=== PATIENT | female | born 1980 | race Caucasian/White ===

== ENCOUNTER 2022-01-10 19:33 | Emergency (ER) | payer MEDICAID, SELFPAY ==
[2022-01-10 19:46] VITALS: BP 120/78; PULSE 74; O2SAT 95
[2022-01-10 19:48] VITALS: BP 120/77; PULSE 74; RESP 22; O2SAT 99; BMI 30.5
--- NOTE | 2022-01-10 20:21 | ED.BACK ---
HPI - Back Pain/Injury General Chief Complaint: Back Pain/Injury Stated Complaint: back pain Time Seen by Provider: 01/10/22 19:36 Source: patient and EMS Mode of arrival: EMS Limitations: no limitations History of Present Illness HPI Narrative: 41-year-old female with a history of fibromyalgia presents with low back pain after being involved in a fall. Patient tells me that she when out for walk with her dog and her dog started to run after seeing her neighbor. She had the leash wrapped around her right hand. Her dog pulled her to the ground she landed on the right knee. She denies hitting her head or loss of consciousness. She reports then her dog started pulling her across the ground and she was lying on her right side. She tried to grab the leash with her left hand. Eventually she was able to stop to talk. She presents with right knee pain and left lower back pain. No radiation of the back pain. No incontinence of urine or stool. No numbness or tingling in the groin or the lower legs. No fever. Patient having difficulty with ambulation due to pain Related Data Previous Rx's Medication Instructions Recorded cyclobenzaprine 10 mg tablet 10 mg PO TID PRN muscle spasm #15 01/11/22 tabs oxycodone 5 mg tablet 5 mg PO Q8H PRN pain #8 tabs 01/11/22 Allergies Allergy/AdvReac Type Severity Reaction Status Date / Time morphine [MORPHINE] Allergy Intermediate ITCHY Verified 01/10/22 19:53 latex [LATEX] Allergy Mild RASH ON Verified 01/10/22 19:53 HAND SEASONAL ALLERGIES Allergy Mild RUNNY Uncoded 03/17/20 16:52 WATERY EYES Review of Systems Review of Systems: Yes all other systems are reviewed and are negative Constitutional: Constitutional: Reports no additional constitutional complaints, Denies body ache(s), Denies chills, Denies fever(s), Denies headache(s) and Denies weakness Eyes: Eyes: Reports no additional eye complaints and Denies change in vision ENT: Reports system reviewed and no additional complaints, except as documented, Denies dizziness, Denies headache(s), Denies nasal congestion, Denies nasal discharge and Denies neck pain Cardiovascular: Cardiovascular: Reports no additional cardiovascular complaints, Denies chest pain, Denies leg edema and Denies dyspnea Respiratory: Respiratory: Reports no additional respiratory complaints, Denies cough and Denies dyspnea Gastrointestinal: Gastrointestinal: Reports no additional gastrointestinal complaints, Denies abdominal pain, Denies diarrhea, Denies nausea and Denies vomiting Genitourinary: Genitourinary: Reports no additional female genitourinary complaints and Denies urinary incontinence Musculoskeletal: Musculoskeletal: Reports no additional musculoskeletal complaints, Reports back pain, Reports arthralgias, Denies joint swelling, Denies neck pain, Denies numbness and Denies tingling Integumentary/Breasts: Skin/Breast: Reports system reviewed and no additional complaints, except as docu and Denies rash Neurologic: Reports system reviewed and no additional complaints, except as documented, Denies Abnormal speech present, Denies dizziness, Denies headache(s), Denies numbness, Denies tingling and Denies weakness PMFSH Past Medical History Attestation statement: The following information was validated with the patient. Source: old records reviewed and nursing notes reviewed Medical History Back pain Fibromyalgia Neck pain Surgical History Hx of bilateral breast reduction surgery Social History Social History Advance Directives: No Patient : No Physical Exam Vital Signs: Vital Signs: Last Vital Signs Temp 97.0 F 01/10/22 23:50 Pulse 94 01/10/22 23:50 Resp 16 01/10/22 23:50 BP 104/72 01/10/22 23:50 Pulse Ox 98 01/10/22 23:50 O2 Del Method 01/10/22 21:57 BMI result Body Mass Index 30.5 Const: General: cooperative, healthy appearing, comfortable and no acute distress Orientation/consciousness: patient oriented x3 Limitations: no limitations HEENT: Head: Yes normal to inspection, No Watson's sign and No raccoon eyes Ears: hearing grossly normal bilaterally General nose exam: Normal external nose present Face and sinus: Yes normal facial exam Mouth: Normal oral and palatal mucosa present Throat: Yes posterior oropharynx normal Eyes: General: appearance normal, both eyes and all related structures Pupils: Equal, round and reactive pupils present Neck: Neck: Yes normal visual inspection Chest: Chest palpation & inspection: normal inspection of the chest Resp: Effort & Inspection: normal respiratory effort Auscultation: clear to auscultation bilaterally Cardio: Rate: regular rate Rhythm: regular rhythm Peripheral pulses: Peripheral pulses 2+ throughout GI: Inspection: Yes normal to inspection Palpation (GI): Soft to palpation and nontender Auscultation: normal bowel sounds : General: Yes no CVA tenderness Back/Spine/Pelvis: Other: No midline lumbar or thoracic tenderness. There is tenderness to the left lumbar soft tissue which is worsened with straight leg raise Back: no CVA tenderness Thoracic/Lumbar Spine: thoracic and lumbar spine normal to inspection Skin: General skin exam: no rashes or lesions noted Neuro: General: patient oriented x3, no focal motor deficits, normal sensation to monofilament and Unable to assess gait Cranial nerves: Yes Equal, round and reactive pupils present, Yes Normal facial strength present and Yes Midline tongue present Cognition (Neuro): normal cognition Speech: No Abnormal speech present Gait exam (Neuro): Unable to assess gait Motor exam (neuro): 5/5 motor strength present throughout Sensory Exam: Normal double simultaneous stimulation for sensation Extrem: Other: No obvious swelling, bruising or abrasion to the right knee. There is full range of motion of the knee with no difficulty General: Yes normal to inspection Course Course Course Narrative: 0-Continued pain despite toradol and valium. Will dose with oxycodone/APAP. Reevaluation(s) Reevaluation #1: Pain is better. Ambulated to bathroom independently. Will discharge home with muscle relaxant, oxycodone/APAP. Likely lumbar strain, contusion of right knee. Reviewed worrisome signs/symptoms with patient and when to seek additional care. Comfortable with plan for discharge home. Time: 00:00 MDM - Back Pain/Injury MDM Narrative Medical decision making narrative: 41-year-old female here with left lower back pain and right knee pain after a fall Normal neuro exam. FROM of right knee with no deformity or swelling. Low concern for fx. No midline back tenderness seems more MS on exam. No red flag symptoms or deficits. Difficulty with ambulation due to pain Will give Toradol IM, PO valium Medical Records Attestation: I reviewed the patient's medical records. Lab Data Attestation: I reviewed the patient's lab results. Discharge Plan Discharge Clinical Impression: Strain of lumbar region Patient Disposition: Home, Self-Care Instructions: Low Back Strain (ED) Additional Instructions: heat to the area gentle stretching follow-up with your PCP for persistent symptoms Prescriptions: New oxycodone 5 mg tablet 5 mg PO Q8H PRN (Reason: pain) Qty: 8 0RF Rx Instructions: Partial Fill upon patient request. cyclobenzaprine 10 mg tablet 10 mg PO TID PRN (Reason: muscle spasm) Qty: 15 0RF Referrals: Gladys Roper MD [Primary Care Provider] - Stand Alone Forms: Work/School Release
[2022-01-10] MEDS: diazePAM 2 MG TABLET PO (20:32)
[2022-01-10] MEDS: Ketorolac Tromethamine 60 MG/2 ML VIAL IM (20:32)
[2022-01-10 21:57] VITALS: BP 109/55; PULSE 67; RESP 16; TEMP 36.3; O2SAT 98
[2022-01-10] MEDS: oxyCODONE HCl Immed Release 5 MG TABLET 10 MG PO (22:01)
[2022-01-10] MEDS: Acetaminophen 325 MG TABLET 975 MG PO (22:01)
[2022-01-10 23:50] VITALS: BP 104/72; PULSE 94; RESP 16; TEMP 36.1; O2SAT 98
== END 2022-01-11 00:30 | disposition home or self-care (01) ==
PROVIDERS: Emergency Provider Emergency Medicine; PCP Family Medicine
DX: S80.211A Abrasion, right knee, initial encounter (principal); S39.012A Strain of muscle, fascia and tendon of lower back, initial encounter; W18.39XA Other fall on same level, initial encounter; Y93.K1 Activity, walking an animal; Y92.480 Sidewalk as the place of occurrence of the external cause; Y99.9 Unspecified external cause status
CPT/HCPCS: 96372; 99284; J1885